=== PATIENT | male | born 1965 | race Caucasian/White ===

== ENCOUNTER 2016-10-12 15:24 | Emergency (ER) | payer OTHER ==
[2016-10-12 15:37] VITALS: RESP 16; TEMP 98.1; O2SAT 96
[2016-10-12] MEDS ORDERED: ACETAMINOPHEN 325 MG TAB PO ONE (15:38)
[2016-10-12] MEDS ORDERED: LET GEL TOPICAL 1 EA SYR TP ONE (15:41)
--- NOTE | 2016-10-12 16:02 | EDPHY ---
H & P Stated Complaint: hit on head by falling pipe ~ 12noon no LOC Time Seen by Provider: 10/12/16 15:33 HPI/ROS: CHIEF COMPLAINT: Scalp laceration HISTORY OF PRESENT ILLNESS: This is a healthy [age]-year-old male who was struck on the top of his head by a copper pipe. It fell from a height of 1 story. He did not lose consciousness or fall to the ground. He has pain at the site of scalp lacerations. He denies headache. He has no visual changes, difficulty with speech, confusion, numbness, or weakness. He is not experiencing neck pain. REVIEW OF SYSTEMS: No recent fever, cough, shortness of breath, chest pain, abdominal pain, nausea vomiting, diarrhea, constipation. No recent illnesses. Source: Patient, Family Exam Limitations: Language barrier (Patient is a [place] speaker. Family member is here assisting with interpretation. He is appropriately responding to increased instructions.) - Personal History Current Tetanus Diphtheria and Acellular Pertussis (TDAP): Yes - Medical/Surgical History PMH: Negative. Other PMH: Knee and nose surg - Social History Smoking Status: Heavy smoker Additional Social History: He smokes 1 pack of cigarettes daily. - Physical Exam Exam: General Appearance: Alert. Vital signs reviewed. Head: Curvilinear laceration on the top of his head measuring 3 cm. There is also 1 cm laceration just anterior to that. No active bleeding. Galea is not exposed. No palpable skull fracture. Eyes: Pupils equal and round, no conjunctival injection, no discharge. Anicteric. ENT, Mouth: Mucous membranes are moist, no oropharyngeal erythema or edema. No hemotympanum. Neck: Nontender to palpation over the cervical spine. Respiratory: Lungs are clear to auscultation; no wheezes, rales, or rhonchi. Cardiovascular: Regular rate and rhythm; no murmur, rub, or gallop. Gastrointestinal: Abdomen is soft and nontender. Skin: Warm and dry, no rashes on exposed skin, normal color. Back: Nontender to palpation over the thoracolumbar spine. Neurological: Alert and oriented. Moving all four extremities easily and equally. Cranial nerves II through XII are examined and are intact (visual acuity not tested). Strength is 5 over 5 bilaterally with testing of all major motor groups. Sensation is intact to light touch over all 4 extremities. Deep tendon reflexes are 2+ in the biceps and knees bilaterally. Gait is normal. [id number] is performed accurately. Psychiatric: Normal affect. Constitutional: Initial Vital Signs Temperature (C) 36.7 C 10/12/16 15:36 Heart Rate 79 10/12/16 15:36 Respiratory Rate 16 10/12/16 15:36 Blood Pressure 127/89 H 10/12/16 15:36 O2 Sat (%) 96 10/12/16 15:36 O2 Delivery Mode Room Air Allergies/Adverse Reactions: No Known Allergies Allergy (Unverified 10/12/16 15:37) Home Medications: Medication Instructions Recorded NK [No Known Home Meds] 10/12/16 Medical Decision Making Procedures: Procedure: Laceration repair. Laceration 1. Verbal consent was obtained from the patient. The 1 cm laceration laceration on the vertex was anesthetized in the usual fashion. The wound was clean and explored to its base with a gloved finger. There were no deep structures involved. The wound was repaired with 3 surgical sorin. The wound repair was simple. The procedure was performed by myself. Procedure: Laceration repair. Laceration 2. Verbal consent was obtained from the patient. The 3 cm curvilinear laceration on the top of the head was anesthetized in the usual fashion. The wound was washed and explored to its base with a gloved finger. There were no deep structures involved. The wound was repaired with surgical sorin, 9 . The wound repair was single layer, simple . The procedure was performed by myself. ED Course/Re-evaluation: 51-year-old male with blunt trauma to the top of his head. He has 2 scalp lacerations that have been repaired in the emergency department. Willi coma score 15. I do not feel that CT imaging of the brain is warranted. Wound care instructions provided. I do not suspect skull fracture. He might have a mild concussion and I am giving him information about concussion. Differential Diagnosis: I considered a differential diagnosis that includes but is not limited to intracranial hemorrhage, concussion, skull fracture, laceration, and cervical spine injury. - Data Points Medications Given: Discontinued Medications Acetaminophen (Tylenol) 650 mg PO EDNOW ONE Stop: 10/12/16 15:39 Last Admin: 10/12/16 15:40 Dose: 650 mg Departure - Departure Disposition: Home, Routine, Self-Care Clinical Impression: Scalp laceration Qualifiers: Encounter type: initial encounter Qualified Code(s): S01.01XA - Laceration without foreign body of scalp, initial encounter Condition: Good Instructions: Laceration (ED), Concussion (ED) Additional Instructions: Surgical sorin should be removed in 5 days. There 9 sorin in the longer cut and 3 sorin in the shorter cut. You can return here for that. There is no additional charge. Keep the sorin clean and dry for 24 hours. After that it is fine to gently wash your scalp. Dry the area carefully after showering or bathing. Referrals: ROBERT CHAND,. [Primary Care Provider] - As per Instructions Print Language: [place]
[2016-10-12 16:32] VITALS: BP 117/76; PULSE 73
== END 2016-10-12 16:32 | disposition home or self-care (01) ==
LOC: CED 15:24
PROC: 0HQ0XZZ Repair Scalp Skin, External Approach (ICD-10-PCS; principal; 2016-10-12)
DX: S01.01XA Laceration without foreign body of scalp, initial encounter (principal); F17.210 Nicotine dependence, cigarettes, uncomplicated; W20.8XXA Other cause of strike by thrown, projected or falling object, initial encounter